=== PATIENT | female | born 1940 | race Caucasian/White ===

== ENCOUNTER 2022-02-18 16:05 | Inpatient (IN) | payer MEDICARE, OTHER ==
[~2022-02-18] VITALS: Ht 154.9 cm; Wt 49.2 kg
[2022-02-18] MEDS ORDERED: CALC GLUC 1 GM/100 ML IVPB 100 ML IV ONE (16:15)
[2022-02-18 16:26] LABS: BASOPHILS # (AUTO) 0.1 10^3/uL (0.0-0.1); BASOPHILS % (AUTO) 1 % (0-10); EOSINOPHILS % (AUTO) 0 % (0-10); HEMATOCRIT 37 % (35-52); HEMOGLOBIN 11.7 g/dL (11.5-16.0); LYMPHOCYTES # (AUTO) 0.7 10^3/uL (1.0-4.0); LYMPHOCYTES % (AUTO) 11 % (12-44); MEAN CORPUSCULAR HEMOGLOBIN 32 pg (25-34); MEAN CORPUSCULAR HGB CONC 32 g/dL (32-36); MEAN CORPUSCULAR VOLUME 100 fL (80-99); MEAN PLATELET VOLUME 10.3 fL (9.0-12.2); MONOCYTES # (AUTO) 0.8 10^3/uL (0.0-1.0); MONOCYTES % (AUTO) 12 % (0-12); NEUTROPHILS # (AUTO) 5.2 10^3/uL (1.8-7.8); NEUTROPHILS % (AUTO) 76 % (42-75); PLATELET COUNT 326 10^3/uL (130-400); WHITE BLOOD COUNT 6.8 10^3/uL (4.3-11.0)
--- NOTE | 2022-02-18 16:27 | ED General ---
General Stated Complaint: ABNORMAL LABS Source of Information: Patient Exam Limitations: No Limitations History of Present Illness Date Seen by Provider: Feb 18, 2022 Time Seen by Provider: 16:02 Initial Comments 81-year-old female presents to the emergency department from [facility] for reported hyperkalemia. [facility] reported to EMS that her heart rate was in the 40s and her blood pressure was 70 systolic. On EMS arrival her heart rate was in the 60s and 70s and her blood pressure was 120/86. She had labs drawn this morning showing a potassium of 6.9. She tells me that she has been at [facility] for 1 week and 2 days, prior to that was admitted to the hospital at [facility]. She is unclear exactly what she was admitted to the hospital for but thinks it may have had something to do with her kidneys. She was told by her doctor that "my kidneys are better now." She denies any fevers or chills. She has had some stabbing pains in her left anterior chest w all for most of the day but states at present they have subsided. She denies any coughing. No abdominal pain. She does tell me that yesterday she had significant amount of loose stools. Nonbloody. Allergies and Home Medications Allergies Coded Allergies: No Known Drug Allergies (Unverified , 02/18/22) Patient Home Medication List Home Medication List Reviewed: Yes ALPRAZolam (ALPRAZolam) 0.25 Mg Tablet, 0.25 MG PO Q8H PRN for ANXIETY, (Reported) Entered as Reported by: AYALA TURNER on 02/19/221352 Last Action: Continued Aspirin (Aspirin) 81 Mg Tab.chew, 81 MG PO DAILY, (Reported) Entered as Reported by: AYALA TURNER on 02/19/221352 Last Action: Continued Carvedilol (Carvedilol) 3.125 Mg Tablet, 3.125 MG PO BID, (Reported) Entered as Reported by: AYALA TURNER on 02/19/221352 Last Action: Continued Citalopram Hydrobromide (Citalopram HBr) 20 Mg Tablet, 20 MG PO DAILY, (Reported) Entered as Reported by: AYALA TURNER on 02/19/221352 Last Action: Continued Famotidine (Famotidine) 20 Mg Tablet, 20 MG PO DAILY, (Reported) Entered as Reported by: AYALA TURNER on 02/19/221352 Last Action: Continued Insulin Aspart (Insulin Aspart Flexpen) 100 Unit/Ml (3 Ml) Insuln.pen, UNITS SQ ACHS, (Reported) Entered as Reported by: AYALA TURNER on 02/19/221352 Last Action: Held Insulin Glargine,Hum.rec.anlog (Lantus Solostar) 100 Unit/Ml (3 Ml) Insuln.pen, 12 UNITS SQ HS, (Reported) Entered as Reported by: AYALA TURNER on 02/19/221352 Last Action: Converted Lansoprazole (Lansoprazole) 30 Mg Capsule.dr, 30 MG PO DAILY, (Reported) Entered as Reported by: AYALA TURNER on 02/19/221352 Last Action: Converted Lisinopril (Lisinopril) 10 Mg Tablet, 10 MG PO DAILY, (Reported) Entered as Reported by: AYALA TURNER on 02/19/221352 Last Action: Held Mirtazapine (Mirtazapine) 15 Mg Tablet, 15 MG PO HS, (Reported) Entered as Reported by: AYALA TURNER on 02/19/221352 Last Action: Converted Oxycodone HCl/Acetaminophen (Oxycodone-Acetaminophen 5-325) 5 Mg-325 Mg Tablet, 1 EACH PO Q4H PRN for PAIN-MODERATE (5-7), (Reported) Entered as Reported by: AYALA TURNER on 02/19/221352 Last Action: Continued Rosuvastatin Calcium (Rosuvastatin Calcium) 20 Mg Tablet, 20 MG PO DAILY, (Reported) Entered as Reported by: AYALA TURNER on 02/19/221352 Last Action: Continued Review of Systems Review of Systems Constitutional: weakness EENTM: no symptoms reported Respiratory: no symptoms reported Cardiovascular: chest pain Gastrointestinal: diarrhea Genitourinary: no symptoms reported Musculoskeletal: no symptoms reported Skin: no symptoms reported Psychiatric/Neurological: No Symptoms Reported Hematologic/Lymphatic: No Symptoms Reported Immunological/Allergic: no symptoms reported Past Cllgfgc-Whlxms-Gytoig Hx Patient Social History Tobacco Use?: No Use of E-Cig and/or Vaping dev: No Substance use?: No Alcohol Use?: No Family Medical History Reviewed Nursing Family Hx No Pertinent Family Hx Physical Exam Vital Signs Vital Signs - First Documented 02/18/22 16:05 Temp 35.7 Pulse 97 Resp 15 B/P (MAP) 126/62 (83) Pulse Ox 95 O2 Delivery Nasal Cannula O2 Flow Rate 2.00 Capillary Refill : Height, Weight, BMI Height: '" Weight: lbs. oz. kg; BMI Method: General Appearance: No Apparent Distress, Thin, Other (She is very pale) HEENT: PERRL/EOMI, TMs Normal, Normal ENT Inspection, Pharynx Normal Neck: Normal Inspection, Non Tender Respiratory: Chest Non Tender, Lungs Clear, Normal Breath Sounds, No Accessory Muscle Use, No Respiratory Distress Cardiovascular: Regular Rate, Rhythm, No Edema, No Gallop, No JVD, Systolic Murmur (Holosystolic murmur left sternal border) Gastrointestinal: Normal Bowel Sounds, No Organomegaly, No Pulsatile Mass, Non Tender, Soft Extremity: Normal Capillary Refill, Normal Inspection, Normal Range of Motion, Non Tender, No Calf Tenderness Neurologic/Psychiatric: Alert, Oriented x3, Normal Mood/Affect Skin: Pallor Lymphatic: No Adenopathy Progress/Results/Core Measures Suspected Sepsis SIRS Temperature: Pulse: Respiratory Rate: Laboratory Tests 02/18/22 16:16: White Blood Count 6.8 Blood Pressure / Mean: Laboratory Tests 02/18/22 16:16: Creatinine 0.89, Platelet Count 326, Total Bilirubin 0.4 Results/Orders Lab Results Laboratory Tests Test 02/18/22 16:16 02/18/22 16:44 Range/Units White Blood Count 6.8 4.3-11.0 10^3/uL Red Blood Count 3.66 L 3.80-5.11 10^6/uL Hemoglobin 11.7 11.5-16.0 g/dL Hematocrit 37 35-52 % Mean Corpuscular Volume 100 H 80-99 fL Mean Corpuscular Hemoglobin 32 25-34 pg Mean Corpuscular Hemoglobin Concent 32 32-36 g/dL Red Cell Distribution Width 13.7 10.0-14.5 % Platelet Count 326 130-400 10^3/uL Mean Platelet Volume 10.3 9.0-12.2 fL Immature Granulocyte % (Auto) 0 % Neutrophils (%) (Auto) 76 H 42-75 % Lymphocytes (%) (Auto) 11 L 12-44 % Monocytes (%) (Auto) 12 0-12 % Eosinophils (%) (Auto) 0 0-10 % Basophils (%) (Auto) 1 0-10 % Neutrophils # (Auto) 5.2 1.8-7.8 10^3/uL Lymphocytes # (Auto) 0.7 L 1.0-4.0 10^3/uL Monocytes # (Auto) 0.8 0.0-1.0 10^3/uL Eosinophils # (Auto) 0.0 0.0-0.3 10^3/uL Basophils # (Auto) 0.1 0.0-0.1 10^3/uL Immature Granulocyte # (Auto) 0.0 0.0-0.1 10^3/uL Sodium Level 139 135-145 MMOL/L Potassium Level 6.3 H 3.6-5.0 MMOL/L Chloride Level 97 L 98-107 MMOL/L Carbon Dioxide Level 31 21-32 MMOL/L Anion Gap 11 5-14 MMOL/L Blood Urea Nitrogen 36 H 7-18 MG/DL Creatinine 0.89 0.60-1.30 MG/DL Estimat Glomerular Filtration Rate 65 BUN/Creatinine Ratio 40 Glucose Level 174 H 70-105 MG/DL Calcium Level 9.2 8.5-10.1 MG/DL Corrected Calcium 10.0 8.5-10.1 MG/DL Magnesium Level 2.1 1.6-2.4 MG/DL Total Bilirubin 0.4 0.1-1.0 MG/DL Aspartate Amino Transf (AST/SGOT) 18 5-34 U/L Alanine Aminotransferase (ALT/SGPT) 15 0-55 U/L Alkaline Phosphatase 36 L 40-136 U/L Total Protein 6.7 6.4-8.2 GM/DL Albumin 3.0 L 3.2-4.5 GM/DL Influenza Type A (RT-PCR) Not Detected Not Detecte Influenza Type B (RT-PCR) Not Detected Not Detecte SARS-CoV-2 RNA (RT-PCR) Not Detected Not Detecte My Orders Orders - DOMINIQUE HOPKINS DO Cbc With Automated Diff (02/18/22 16:12) Comprehensive Metabolic Panel (02/18/22 16:12) Magnesium (02/18/22 16:12) Ua Culture If Indicated (02/18/22 16:12) Chest 1 View Ap/Pa Only (02/18/22 16:12) Covid 19 Inhouse Test (02/18/22 16:12) Influenza A And B By Pcr (02/18/22 16:12) Calc Gluc 1 Gm/100 Ml Ivpb (Calcium Gluc (02/18/22 16:15) Ekg Tracing (02/18/22 16:21) Ed Iv/Invasive Line Start (02/18/22 16:38) C Difficile Ag + Toxin A/B. (02/18/22 16:39) Sodium Bicarbonate 8.4% Syr (Sodium Bica (02/18/22 17:15) Insulin (Regular) Human (Novolin R (Per (02/18/22 21:00) D50w (Emergency) Syringe (Dextrose 50% 5 (02/18/22 17:15) Ns Iv 500 Ml (Sodium Chloride 0.9%) (02/18/22 17:15) Insulin (Regular) Human (Novolin R (Per (02/18/22 17:18) Metronidazole Tablet (Flagyl Tablet) (02/18/22 18:00) Ed Admission (Communication) (02/18/22 17:53) Aspirin Chewable Tablet (Baby Aspirin Ch (02/18/22 18:00) Medications Given in ED Current Medications Medications Dose Ordered Sig/Roman Route Start Time Stop Time Status Last Admin Dose Admin Calcium Gluconate/ Sodium Chloride 100 ml @ 120 mls/hr ONCE ONCE IV 02/18/22 16:15 02/18/22 17:04 DC 02/18/22 16:25 120 MLS/HR Dextrose 50 ml ONCE ONCE IV 02/18/22 17:15 02/18/22 17:16 DC 02/18/22 17:23 50 ML Sodium Bicarbonate 50 meq ONCE ONCE IV 02/18/22 17:15 02/18/22 17:16 DC 02/18/22 17:19 50 MEQ Vital Signs/I&O 02/18/22 16:05 Temp 35.7 Pulse 97 Resp 15 B/P (MAP) 126/62 (83) Pulse Ox 95 O2 Delivery Nasal Cannula O2 Flow Rate 2.00 Capillary Refill : ECG EKG : Comment Atrial fibrillation with a rate of 93 bpm. Normal intervals outside of IN interval. There are T wave inversions in lead III and aVF. No ST changes. No STEMI. Departure Communication (Admissions) Time/Spoke to Admitting Phy: 17:50 Starr Patient has atrial fibrillation, apparently new onset. She does have known severe aortic stenosis and is having right-sided chest pain about an hour into her stay. EKG is nonischemic. Her potassium is 6.3, treated initially with calcium prior to knowing this number then treated with insulin glucose and bica rb thereafter. She does appear dehydrated on exam, ordered 500 cc of normal saline. Blood pressures remained stable. Creatinine is normal and troponin is not elevated. Chest x-ray shows bilateral pleural effusions right greater than left. She does not have any symptoms of pneumonia at this time. Did go ahead and give her aspirin when she started to have chest pain. I do believe she likely has C. difficile as well given her recent antibiotics and the. She has no restrictions. I spoke with Dr. Benitez about the myriad of medical concerns at this time. She accepts the patient and transfer. She requests I write bridging orders which I have completed at this time. Impression Primary Impression: Chest pain Qualified Codes: R07.9 - Chest pain, unspecified Additional Impressions: Hyperkalemia Afib Qualified Codes: I48.91 - Unspecified atrial fibrillation Diarrhea Qualified Codes: R19.7 - Diarrhea, unspecified Disposition: 30 STILL A PATIENT Condition: Stable Admissions Decision to Admit Reason: Admit from ER (General) Decision to Admit/Date: Feb 18, 2022 Time/Decision to Admit Time: 17:50 Transfer Transfer Reason: Exceeds level of care DOMINIQUE HOPKINS DO Feb 18, 2022 16:27
[2022-02-18 16:50] LABS: BILIRUBIN,TOTAL 0.4 MG/DL (0.1-1.0); CALCIUM 9.2 MG/DL (8.5-10.1); CREATININE SERUM 0.89 MG/DL (0.60-1.30); MAGNESIUM 2.1 MG/DL (1.6-2.4); POTASSIUM 6.3 MMOL/L (3.6-5.0)
[2022-02-18 16:51] LABS: TOTAL PROTEIN 6.7 GM/DL (6.4-8.2)
--- NOTE | 2022-02-18 17:12 | Diagnostic Imaging Report ---
INDICATION: Chest pain. FINDINGS: There is a kpxsuevc-jq-[id number] right and small left pleural effusions. The heart is mildly enlarged. There is some vascular congestion and perihilar interstitial and ground-glass densities which may be infectious or edema. Sternal wires are midline. There is no pneumothorax. IMPRESSION: 1. Right greater than left pleural fluid, cardiomegaly, vascular congestion, and likely pulmonary edema. 2. Given parenchymal asymmetry, superimposition of pneumonia particularly in the patient's right middle and lower lobes could not be excluded in the appropriate scenario. Dictated by: Dictated on workstation # [id number]
[2022-02-18] MEDS ORDERED: DEXTROSE 50% 50 ML (IMS) SYR IV ONE (17:15)
[2022-02-18] MEDS ORDERED: SODIUM BICARB 8.4% 50 MEQ/50 ML (ABBOTT) SYR IV ONE (17:15)
[2022-02-18] MEDS ORDERED: inSUlin (REGULAR) HUMAN 1 UNIT/0.01 ML (CHARGE PER UNIT) ONE (17:18)
[2022-02-18] MEDS: inSUlin (REGULAR) HUMAN 1 UNIT/0.01 ML (CHARGE PER UNIT) IV SCH (17:20)
[2022-02-18] MEDS: NS IV 500 ML 500 ML IV SCH (17:20)
[2022-02-18] MEDS ORDERED: ASPIRIN 81 MG CHEW (CHILDREN'S ASA) PO ONE (18:00)
[2022-02-18] MEDS ORDERED: metroNIDAZOLE 500 MG (FLAGYL) TAB PO ONE (18:00)
[2022-02-18 19:30] VITALS: BP 109/69
[2022-02-18 22:23] LABS: CALCIUM 9.3 MG/DL (8.5-10.1)
[2022-02-18 22:27] LABS: CREATININE SERUM 0.99 MG/DL (0.60-1.30)
[2022-02-19] VITALS: BP 97/61
[2022-02-19 04:00] VITALS: BP 92/47
[2022-02-19 05:14] LABS: BASOPHILS # (AUTO) 0.1 10^3/uL (0.0-0.1); BASOPHILS % (AUTO) 1 % (0-10); EOSINOPHILS % (AUTO) 0 % (0-10); HEMATOCRIT 33 % (35-52); HEMOGLOBIN 10.5 g/dL (11.5-16.0); LYMPHOCYTES # (AUTO) 1.1 10^3/uL (1.0-4.0); LYMPHOCYTES % (AUTO) 19 % (12-44); MEAN CORPUSCULAR HEMOGLOBIN 32 pg (25-34); MEAN CORPUSCULAR HGB CONC 32 g/dL (32-36); MEAN CORPUSCULAR VOLUME 100 fL (80-99); MEAN PLATELET VOLUME 10.2 fL (9.0-12.2); MONOCYTES # (AUTO) 0.9 10^3/uL (0.0-1.0); MONOCYTES % (AUTO) 15 % (0-12); NEUTROPHILS # (AUTO) 3.7 10^3/uL (1.8-7.8); NEUTROPHILS % (AUTO) 64 % (42-75); PLATELET COUNT 290 10^3/uL (130-400); WHITE BLOOD COUNT 5.8 10^3/uL (4.3-11.0)
[2022-02-19 05:31] LABS: POTASSIUM 6.2 MMOL/L (3.6-5.0)
[2022-02-19 05:32] LABS: CALCIUM 9.1 MG/DL (8.5-10.1)
[2022-02-19 05:36] LABS: CREATININE SERUM 1.11 MG/DL (0.60-1.30)
[2022-02-19] MEDS: inSUlin (REGULAR) HUMAN 1 UNIT/0.01 ML (CHARGE PER UNIT) IV SCH ×4 (07:00→21:46)
[2022-02-19 08:00] VITALS: BP 98/51
[2022-02-19] MEDS ORDERED: SODIUM POLYSTYRENE POWDER 15 GM BOTTLE PO NR (08:00)
--- NOTE | 2022-02-19 08:03 | History & Physical-Hospitalist ---
History of Present Illness HPI/Chief Complaint Chief complaint: Debility with hyperkalemia History of present illness. This is an 81-year-old female clinic patient of [facility] who was placed in [facility] following a hospital course in [place] who presented to the ER with hyperkalemia. Patient had no other abnormalities. Patient will be given IV fluid and Kayexalate. Decubitus ulcer will be managed by Dr. Mccann. She refuses to go back to [facility]. She will go live with her son. Source: patient Exam Limitations: no limitations Date Seen 02/19/22 Time Seen by a Provider: 11:00 Attending Physician Estrada Cao MD PCP Admitting Physician: Maria Luz Clements MD Attending Physician: Maria Luz Clements MD Referring Physician Date of Admission Feb 18, 2022 at 19:45 Home Medications & Allergies Home Medications Reviewed patient Home Medication Reconciliation performed by pharmacy medication reconciliations visitor services technician and/or nursing. Patients Allergies have been reviewed. Allergies Allergies Coded Allergies No Known Drug Allergies (Ftervrmxvv66/30/22) Past Cnkchtd-Opviwh-Nunfkq Hx Patient Social History Marrital Status: single Employed/Student: retired Tobacco Use?: No Smoking Status: Never a Smoker Smokeless Tobacco Frequency: Never a User Use of E-Cig and/or Vaping dev: No Use of E-Cig and/or Vaping Srinath: Never a User Substance use?: No Alcohol Use?: No Pt feels they are or have been: No Current Status status: No status: No Advance Directives: No Communicates: Verbally Primary Language: Dominican Preferred Spoken Language: Dominican Is interpretation needed?: No Sensory deficits: Vision impairment, Hearing impairment Implanted or Applied Medical D: None Past Medical History High Cholesterol, Hypertension Family Medical History Reviewed Nursing Family Hx No Pertinent Family Hx Review of Systems Constitutional: see HPI, malaise, weakness EENTM: no symptoms reported Respiratory: no symptoms reported Cardiovascular: no symptoms reported Gastrointestinal: diarrhea Genitourinary: no symptoms reported Musculoskeletal: back pain, joint pain Skin: no symptoms reported Psychiatric/Neurological: No Symptoms Reported Physical Exam Physical Exam Vital Signs Vital Signs - First Documented 02/18/22 16:05 Temp 35.7 Pulse 97 Resp 15 B/P (MAP) 126/62 (83) Pulse Ox 95 O2 Delivery Nasal Cannula O2 Flow Rate 2.00 Capillary Refill : Less Than 3 Seconds Height, Weight, BMI Height: '" Weight: lbs. oz. kg; 20.42 BMI Method: General Appearance: Anxious, Chronically ill, Thin Respiratory: Chest Non Tender, Lungs Clear, Normal Breath Sounds, No Accessory Muscle Use, No Respiratory Distress Cardiovascular: Regular Rate, Rhythm, No Edema, No Gallop, No JVD, No Murmur, Normal Peripheral Pulses Neurologic/Psychiatric: Alert, Oriented x3, No Motor/Sensory Deficits, Normal Mood/Affect Results Results/Procedures Labs Laboratory Tests 02/18/22 16:16 02/18/22 22:05 02/19/22 05:06 Patient resulted labs reviewed. Assessment/Plan Admission Diagnosis Assessment: Hyperkalemia Debility Sacral decubitus ulcer Diarrhea C. difficile positive Plan: Kayexalate Gentle IV fluids Vancomycin p.o. Admission Status: Inpatient Order (span 2 midnights) Reason for Inpatient Admission: Decubitus ulcer with C. difficile colitis BJORN FLANAGAN DO Feb 19, 2022 08:03
[2022-02-19] MEDS: NS IV 500 ML 500 ML IV SCH (09:55)
--- NOTE | 2022-02-19 11:47 | Wound Care Assessment ---
Wound Care Assessment Date Seen by Provider: Feb 19, 2022 Time Seen by Provider: 11:40 Chief Complaint Sacral Pressure ulcer HPI This pleasant 81 year old female comes [facility] us [facility] with diarrheal illness and sacral pressure ulcer. She notes that the ulcer has been present for a long while and is painful. Her facility has been treating it with "patches". She is quite frail and there is a workup for C.Diff in process. Her albumin is a bit low (will check prealbumin). I will go ahead and order protein shakes with her history and body habitus. She is incontinent of feces currently as well. Smoking Status: Never a Smoker Recreational Drug Use: No Alcohol Use: Denies Use Review of Systems General: Appetite (Poor), Other (Thin) Cardiovascular: Palpitations Gastrointestinal: Diarrhea Neurological: Weakness Exam Vital Signs Date Time Temp Pulse Resp B/P (MAP) Pulse Ox O2 Delivery O2 Flow Rate FiO2 02/19/22 09:46 95 Nasal Cannula 2.00 02/19/22 08:00 36.2 92 18 98/51 (67) Capillary Refill : Less Than 3 Seconds General Appearance: cachetic HEENT: other (normal hearing) Neck: full range of motion Cardiovascular: no edema Respiratory: no respiratory distress, no accessory muscle use Extremities: no pedal edema Neurologic/Psychiatric: alert, normal mood/affect, other (Patient is reasonable historian but is confused on timeframe (longevity of group home stay, timing of ulceration...)) Skin: normal color Skin Problem Location: other (sacrum) Skin Character: erythema (non-blanching erythema in periwound), tenderness Wound assessment: 2x1.5x0.1cm. The epithelialization is none. There is no tunneling or undermining. Drainage is large and serous. Granulation is none. Necrotic is large and slough. The margins are flat. Results Laboratory Tests 02/18/22 16:16: White Blood Count 6.8, Red Blood Count 3.66L, Hemoglobin 11.7, Hematocrit 37, Mean Corpuscular Volume 100H, Mean Corpuscular Hemoglobin 32, Mean Corpuscular Hemoglobin Concent 32, Red Cell Distribution Width 13.7, Platelet Count 326, Mean Platelet Volume 10.3, Immature Granulocyte % (Auto) 0, Neutrophils (%) (Auto) 76H, Lymphocytes (%) (Auto) 11L, Monocytes (%) (Auto) 12, Eosinophils (%) (Auto) 0, Basophils (%) (Auto) 1, Neutrophils # (Auto) 5.2, Lymphocytes # (Auto) 0.7L, Monocytes # (Auto) 0.8, Eosinophils # (Auto) 0.0, Basophils # (Auto) 0.1, Immature Granulocyte # (Auto) 0.0, Sodium Level 139, Potassium Level 6.3H, Chloride Level 97L, Carbon Dioxide Level 31, Anion Gap 11, Blood Urea Nitrogen 36H, Creatinine 0.89, Estimat Glomerular Filtration Rate 65, BUN/Creatinine Ratio 40, Glucose Level 174H, Calcium Level 9.2, Corrected Calcium 10.0, Magnesium Level 2.1, Total Bilirubin 0.4, Aspartate Amino Transf (AST/SGOT) 18, Alanine Aminotransferase (ALT/SGPT) 15, Alkaline Phosphatase 36L, Total Protein 6.7, Albumin 3.0L 02/18/22 16:44: Influenza Type A (RT-PCR) Not Detected, Influenza Type B (RT-PCR) Not Detected, SARS-CoV-2 RNA (RT-PCR) Not Detected 02/18/22 22:05: Sodium Level 136, Potassium Level 6.0H, Chloride Level 98, Carbon Dioxide Level 24, Anion Gap 14, Blood Urea Nitrogen 35H, Creatinine 0.99, Estimat Glomerular Filtration Rate 57, BUN/Creatinine Ratio 35, Glucose Level 206H, Calcium Level 9.3 02/19/22 05:06: White Blood Count 5.8, Red Blood Count 3.31L, Hemoglobin 10.5L, Hematocrit 33L, Mean Corpuscular Volume 100H, Mean Corpuscular Hemoglobin 32, Mean Corpuscular Hemoglobin Concent 32, Red Cell Distribution Width 13.6, Platelet Count 290, Mean Platelet Volume 10.2, Immature Granulocyte % (Auto) 0, Neutrophils (%) (Auto) 64, Lymphocytes (%) (Auto) 19, Monocytes (%) (Auto) 15H, Eosinophils (%) (Auto) 0, Basophils (%) (Auto) 1, Neutrophils # (Auto) 3.7, Lymphocytes # (Auto) 1.1, Monocytes # (Auto) 0.9, Eosinophils # (Auto) 0.0, Basophils # (Auto) 0.1, Immature Granulocyte # (Auto) 0.0, Sodium Level 136, Potassium Level 6.2H, Chloride Level 98, Carbon Dioxide Level 26, Anion Gap 12, Blood Urea Nitrogen 38H, Creatinine 1.11, Estimat Glomerular Filtration Rate 50, BUN/Creatinine Ratio 34, Glucose Level 209H, Calcium Level 9.1 Assessment/Plan/Dx Assessment: 1. S3 pressure ulcer sacrum 2. Diarrheal illness with fecal incontinence 3. Atrial fibrillation (new) 4. Severe aortic stenosis 5. PEM with cachexia 6. CKD stage 3 Plan: 1. Cleanse daily with vashe. Protect periwound with barrier ointment. Apply Aquacel Ag to wound bed. Secure with BFD and change daily and prn for soiling. Frequent positional changes for adequate off loading 2. Defer to primary team. Good hygiene recommended 3. Defer to primary team 4. Defer to primary team 6. Protein shakes tid 7. Defer to primary team JANEL SNOW MD Feb 19, 2022 11:47
--- NOTE | 2022-02-19 11:59 | Physical Therapy Evaluation ---
PT Evaluation-General Medical Diagnosis Admission Date Feb 18, 2022 at 19:45 Medical Diagnosis: A-fib/CP/diarrhea/hypokalemia Onset Date: Feb 18, 2022 Therapy Diagnosis Therapy Diagnosis: generalized weakness/debility Precautions Precautions/Isolations: Fall Prevention, Contact/Enteric Isolation Referral Physician: Alex Reason for Referral: Evaluation/Treatment Medical History Pertinent Medical History: Atrial Fib Additional Medical History multiple wounds on her gluteal region Current History EMS from [place] secondary to decreased HR Reviewed History: Yes Social History Home: Prison Prior Prior Level of Function SCALE: Activities may be completed with or without assistive devices. 6-Rtjscritmh-cfozlgv completes the activity by him/herself with no assistance from a helper. 5-Set-up or Clean-up Assistance-helper sets up or cleans up; patient completes activity. [place] assists only prior to or following the activity. 4-Supervision or Touching Assistance-helper provides verbal cues and/or touchi ng/steadying and/or contact guard assistance as patient completes activity. Assistance may be provided throughout the activity or intermittently. 3-Partial/Moderate Assistance-helper does LESS THAN HALF the effort. [place] lifts, holds or supports trunk or limbs, but provides less than half the effort. 2-Substantial/Maximal Assistance-helper does MORE THAN HALF the effort. [place] lifts or holds trunk or limbs and provides more than half the effort. 6-Vhhxvhvfd-olbwkg does ALL the effort. Patient does none of the effort to complete the activity. Or, the assistance of 2 or more helpers is required for the patient to complete the activity. If activity was not attempted, code reason: 7-Patient Refused. 9-Not Applicable-not attempted and the patient did not perform the activity before the current illness, exacerbation or injury. 10-Not Attempted due to Environmental Limitations-(lack of equipment, weather restraints, etc.). 88-Not Attempted due to Medical Conditions or Safety Concerns. Bed Mobility: 4 Transfers (B,C,W/C): 4 Gait: 4 Indoor Mobility (Ambulation): Needed Some Help Stairs: Not Applicalbe Prior Devices Use: Walker PT Evaluation-Current Subjective Patient agrees to PT. Wound care present for assessment. Objective Patient Orientation: Person, Time, Situation Attachments: Oxygen ROM/Strength ROM Lower Extremities bilateral LE WFL Strength Lower Extremities 3/5 grossly bilateral LE all planes Integumentary/Posture Integumentary refer to wound care assessment Bowel Incontinence: Yes Bladder Incontinence: Yes Posture severely kyphotic Neuromuscular (Tone, Coordination, Reflexes) grossly intact Sensory Vision: Functional Hearing: Functional Transfers Sit to Lying (QC): 3 Lying to Sitting/Side of Bed(Q: 3 Sit to Stand (QC): 3 Gait Mode of Locomotion: Walk Anticipated Mode of Locomotion: Walk Walk 10 feet (QC): 3 (side stepping) Distance: 10' Gait Assistive Device: FWW Comments/Gait Description minimal foot clearance due to weakness Balance Sitting Static: Fair Sitting Dynamic: Fair Standing Static: Fair Standing Dynamic: Poor Assessment/Needs 81 y.o. female, will benefit from skilled PT to address functional strength and mobility to improve current LOF. Patient remained in bed per her request, side lying right to relieve gluteal pressure. Rehab Potential: Guarded PT Care Home Goals Care Home Goals PT Care Home Goals Time Frame: Feb 28, 2022 Roll Left & Right (QC): 4 Sit to Lying (QC): 4 Lying-Sitting on Side/Bed(QC): 4 Sit to Stand (QC): 4 Chair/Wwz-fm-Kgxzd Xfer(QC): 4 Toilet Transfer (QC): 4 Walk 10 feet (QC): 4 Walk 50ft with 2 Turns (QC): 4 PT Plan Problem List Problem List: Activity Tolerance, Functional Strength, Safety, Balance, Gait, Transfer, Bed Mobility Treatment/Plan Treatment Plan: Continue Plan of Care Treatment Plan: Bed Mobility, Education, Functional Activity Mary [place], Functional Strength, Gait, Safety, Therapeutic Exercise, Transfers Treatment Duration: Feb 28, 2022 Frequency: 6 times per week Estimated Hrs Per Day: .25 hour per day Patient and/or Family Agrees t: Yes Time Time In: 1120 Time Out: 1134 DATE: Feb 19, 2022 Total Billed Treatment Time: 14 [facility] MAYUR VELASQUEZ PT Feb 19, 2022 11:59
[2022-02-19 12:00] VITALS: BP 113/54
[2022-02-19] MEDS ORDERED: HYPOCHLOROUS ACID/NaCl (VASHE) 250 ML IR SCH (12:00)
--- NOTE | 2022-02-19 13:38 | Occ Therapy Progress Note ---
Therapy Progress Note OT orders received and chart reviewed. OT attempted evaluation this afternoon, but pt adamantly declined OT services on this date due to extreme pain in her coccyx wound. During visit, pt rated pain 10/10, requiring to have basin close by due to c/o nausea. OT educated pt on purpose/benefit of OT, but she continued to decline services, requesting therapist to return tomorrow. OT will attempt evaluation again tomorrow per pt request. 1, refusal 1330 TALITA MERA OT Feb 19, 2022 13:38
[2022-02-19] MEDS ORDERED: MIRT-68 PO (13:53)
[2022-02-19] MEDS ORDERED: INSU100I55 SQ (13:53)
[2022-02-19] MEDS ORDERED: LISI10TA25 PO (13:53)
[2022-02-19] MEDS ORDERED: LANS30CA PO (13:53)
[2022-02-19] MEDS ORDERED: CARV3.122 PO (13:53)
[2022-02-19] MEDS ORDERED: ALPR0.254 PO (13:53)
[2022-02-19] MEDS ORDERED: ROSU20TA32 PO (13:53)
[2022-02-19] MEDS ORDERED: ASPI-999 PO (13:53)
[2022-02-19] MEDS ORDERED: INSU100I10 SQ (13:53)
[2022-02-19] MEDS ORDERED: FAMO20TA5 PO (13:53)
[2022-02-19] MEDS ORDERED: OXYC1TAB11 PO (13:53)
[2022-02-19] MEDS ORDERED: CITA20TA9 PO (13:53)
[2022-02-19 16:00] VITALS: BP 94/64
[2022-02-19] MEDS: VANCOMYCIN 125 MG CAPSULE PO SCH ×2 (17:57→21:47)
[2022-02-19 19:56] VITALS: BP 98/52
[2022-02-19] MEDS: NS IV 1000 ML 1,000 ML IV SCH (23:04)
[2022-02-20] VITALS (8 sets, daily range): BP systolic 95–126; BP diastolic 53–98
[2022-02-20] MEDS: oxyCODONE/APAP 5/325MG (PERCOCET 5) TABLET PO PRN ×2 (04:17→16:19)
[2022-02-20] MEDS: inSUlin (REGULAR) HUMAN 1 UNIT/0.01 ML (CHARGE PER UNIT) IV SCH ×4 (06:25→20:42)
[2022-02-20] MEDS: PANTOPRAZOLE 40 MG (PROTONIX) TAB PO SCH (06:25)
[2022-02-20 06:29] LABS: POTASSIUM 5.9 MMOL/L (3.6-5.0)
[2022-02-20 06:30] LABS: CALCIUM 8.8 MG/DL (8.5-10.1)
[2022-02-20 06:34] LABS: CREATININE SERUM 1.29 MG/DL (0.60-1.30)
[2022-02-20] MEDS: ROSUVASTATIN 20 MG (CRESTOR) TABLET PO SCH (08:15)
[2022-02-20] MEDS: VANCOMYCIN 125 MG CAPSULE PO SCH ×4 (08:15→20:40)
[2022-02-20] MEDS: ASPIRIN 81 MG CHEW (CHILDREN'S ASA) PO SCH (08:16)
[2022-02-20] MEDS: FAMOTIDINE 20 MG (PEPCID) TABLET PO SCH (08:16)
--- NOTE | 2022-02-20 09:39 | Occupational Therapy Eval ---
OT Evaluation-General/PLF Medical Diagnosis Admission Date Feb 18, 2022 at 19:45 Medical Diagnosis: A-fib/CP/diarrhea/hypokalemia Onset Date: Feb 18, 2022 Therapy Diagnosis Therapy Diagnosis: reduced adl status, cognition, safety, pain Precautions Precautions/Isolations: Fall Prevention, Contact/Enteric Isolation (C-diff) Referral Physician: Alex Lowry Reason: Evaluation/Treatment Medical History Pertinent Medical History: Atrial Fib Current History Pt presented from alf with c/o decreased HR. Found to be in A-fib. Pt is a very poor historian, no family present to verify responses. Pt only able to recall that she lives in a fdc. She is unable to answer any other PLOF questions as she responds only with "I don't remember." Reviewed History: Yes Social History Home: Custodial ADL-Prior Level of Function SCALE: Activities may be completed with or without assistive devices. 6-Nagthgvizp-dexoyri completes the activity by him/herself with no assistance from a helper. 5-Set-up or Clean-up Assistance-helper sets up or cleans up; patient completes activity. [place] assists only prior to or following the activity. 4-Supervision or Touching Assistance-helper provides verbal cues and/or touching/steadying and/or contact guard assistance as patient completes activity. Assistance may be provided throughout the activity or intermittently. 3-Partial/Moderate Assistance-helper does LESS THAN HALF the effort. [place] lifts, holds or supports trunk or limbs, but provides less than half the effort. 2-Substantial/Maximal Assistance-helper does MORE THAN HALF the effort. [place] lifts or holds trunk or limbs and provides more than half the effort. 2-Arojeteig-ccdrur does ALL the effort. Patient does none of the effort to complete the activity. Or, the assistance of 2 or more helpers is required for the patient to complete the activity. If activity was not attempted, code reason: 7-Patient Refused. 9-Not Applicable-not attempted and the patient did not perform the activity before the current illness, exacerbation or injury. 10-Not Attempted due to Environmental Limitations-(lack of equipment, weather restraints, etc.). 88-Not Attempted due to Medical Conditions or Safety Concerns. Self Care: Unknown Functional Cognition: Unknown OT Current Status Subjective Pt very confused, requires significant time to process all questions. Appearance Pt left sitting upright in bed, all needs within reach, RN notified. Mental Status/Objective Patient Orientation: Person, Confused, Place Attachments: [place] Catheter, IV, Oxygen, SCD's, Telemetry ADL-Treatment Eating (QC): 3 Pt listing R in bed at OT arrival. She immediately verbalizes "I'm not ready, I'm not ready, when will they be here?" When asked further detail, pt asking wh en dinner would be arriving. Her breakfast tray was set in front of her untouched. Cues needed to direct attention/head back to midline in order to identify tray table. Mod a to return trunk to midline. Dependent to cut foot, place onto fork and place fork into hand. Once patient was holding silverware, she was able to bring food to mouth without assist. Pt is easily distracted and requires several cues to continue meal. She perseverats on pain in buttocks and often screams out in pain. Pt unable to tolerate/attend to further activity due to pain. RN notified. Education OT Patient Education: Correct positioning, Modified ADL techniques, Purpose of tx/functional activities Teaching Recipient: Patient Teaching Methods: Discussion Response to Teaching: Reinforcement Needed OT Snf Goals Snf Goals Time Frame: Mar 13, 2022 Eating (QC): 4 Oral Hygiene (QC): 4 Toileting Hygiene (QC): 3 Shower/Bathe Self (QC): 2 Upper Body Dressing (QC): 3 Lower Body Dressing (QC): 3 Additional Goals: 1-Demonstrate ADL Tasks, 2-Verbalize Understanding, 3- ImproveStrength/[place] 1=Demonstrate adherence to instructed precautions during ADL tasks. 2=Patient will verbalize/demonstrate understanding of assistive devices/modifications for ADL. 3=Patient will improve strength/tolerance for activity to enable patient to perform ADL's. Unsure of patient true baseline at this time, goals may be modified with further investigation. OT Education/Plan Problem List/Assessment Assessment: Decreased Activ Tolerance, Decreased Safety Aware, Decreased UE Strength, Dependent Transfers, Impaired Bed Mobility, Impaired Cognition, Impaired Coordination, Impaired Funct Balance, Impaired Self-Care Skills, Restricted Funct UE ROM, Visual-Perceptual Deficit Discharge Recommendations Plan/Recommendations: Continue POC Therapy Discharge Recommendati: Post Acute OT Treatment Plan/Plan of Care Treatment,Training & Education: Yes Patient would benefit from OT for education, treatment and training to promote independence in ADL's, mobility, safety and/or upper extremity function for ADL's. Plan of Care: ADL Retraining, Caregiver Training, Cognitive Retraining, Functional Mobility, Group Exercise/Act as Ind, UE Funct Exercise/Act, Visual/P erceptual Retrain, W/C Management Training Treatment Duration: Mar 13, 2022 Frequency: 3 times per week (3-5x/week ) Estimated Hrs Per Day: .25 hour per day Rehab Potential: Poor Time Start Time: 09:16 Stop Time: 09:28 DATE: Feb 20, 2022 Total Time Billed (hr/min): 12 Billed Treatment Time 1 visit Ellen Bliss OT Feb 20, 2022 09:39
--- NOTE | 2022-02-20 10:58 | Physical Therapy Progress Note ---
Therapy Progress Note Informed patient we were physical therapists there to do some exercises and try to get her up and moving. Patient refused and said she didn't want to get up. Encouraged patient to try to sit at EOB or at least do some exercises while in bed, patient refused, closed her eyes and ignored us. Will try again later this afternoon if able. ADDIS JAMES PT Feb 20, 2022 10:58
--- NOTE | 2022-02-20 11:20 | Progress Note - Hospitalist ---
Subjective HPI/CC On Admission Date Seen by Provider: Feb 20, 2022 Time Seen by Provider: 11:00 Chief complaint: Debility with hyperkalemia History of present illness. This is an 81-year-old female clinic patient of [facility] who was placed in [facility] following a hospital course in [place] who presented to the ER with hyperkalemia. Patient had no other abnormalities. Patient will be given IV fluid and Kayexalate. Decubitus ulcer will be managed by Dr. Mccann. She refuses to go back to assisted. She will go live with her son. Subjective/Events-last exam Pt is doing about the same Potassium is 5.9 C. Diff maintained on Vancomycin Diaarhea is less Pt has very clear dementia She will not be an in-patient rehab candidate Moving to 4th floor Review of Systems Gastrointestinal: Diarrhea Neurological: Confusion Objective Exam Vital Signs Vital Signs Date Time Temp Pulse Resp B/P (MAP) Pulse Ox O2 Delivery O2 Flow Rate FiO2 02/21/22 04:15 37.5 86 18 108/51 (70) 100 Nasal Cannula 2.00 Capillary Refill : Less Than 3 Seconds General Appearance: No Apparent Distress, WD/WN, Chronically ill, Thin Respiratory: Lungs Clear, Normal Breath Sounds Cardiovascular: Regular Rate, Rhythm Neurologic/Psychiatric: Alert, Oriented x3, No Motor/Sensory Deficits, Normal Mood/Affect Results/Procedures Lab Patient resulted labs reviewed. Assessment/Plan Assessment and Plan Assess & Plan/Chief Complaint Assessment: Hyperkalemia Debility Sacral decubitus ulcer Diarrhea C. difficile positive Dementia Plan: Kayexalate Gentle IV fluids Vancomycin p.o. BJORN FLANAGAN DO Feb 20, 2022 11:20
[2022-02-20] MEDS ORDERED: SODIUM POLYSTYRENE POWDER 15 GM BOTTLE PO ONE (11:30)
[2022-02-20] MEDS: ALPRAZolam 0.25 MG (XANAX) TAB PO PRN (13:31)
[2022-02-20] MEDS: NS IV 1000 ML 1,000 ML IV SCH ×2 (14:51→19:20)
--- NOTE | 2022-02-20 15:10 | Physical Therapy Progress Note ---
Therapy Progress Note Patient on hold this afternoon per nurse . Will check back tomorrow. ADDIS JAMES PT Feb 20, 2022 15:10
[2022-02-20] MEDS ORDERED: MIRTAZAPINE 15 MG (REMERON) TAB PO SCH (21:00)
[2022-02-21] MEDS: ALPRAZolam 0.25 MG (XANAX) TAB PO PRN (01:13)
[2022-02-21] MEDS: oxyCODONE/APAP 5/325MG (PERCOCET 5) TABLET PO PRN (04:13)
[2022-02-21 04:15] VITALS: BP 108/51
[2022-02-21] MEDS ORDERED: DEXTROSE 50% 50 ML (IMS) SYR IV STA (06:23)
[2022-02-21] MEDS ORDERED: DEXTROSE 50% 50 ML (IMS) SYR ONE (06:24)
[2022-02-21] MEDS: PANTOPRAZOLE 40 MG (PROTONIX) TAB PO SCH (06:30)
--- NOTE | 2022-02-21 06:41 | Progress Note - Hospitalist ---
Subjective HPI/CC On Admission Date Seen by Provider: Feb 21, 2022 Time Seen by Provider: 11:00 Chief complaint: Debility with hyperkalemia History of present illness. This is an 81-year-old female clinic patient of [facility] who was placed in [facility] following a hospital course in [place] who presented to the ER with hyperkalemia. Patient had no other abnormalities. Patient will be given IV fluid and Kayexalate. Decubitus ulcer will be managed by Dr. Mccann. She refuses to go back to correction. She will go live with her son. Subjective/Events-last exam Patient declining rapidly Had significant hypoglycemia today indicative of end-of-life changes Spoke with family and they want comfort care this afternoon Review of Systems General: Fatigue, Malaise Objective Exam Vital Signs Vital Signs Date Time Temp Pulse Resp B/P (MAP) Pulse Ox O2 Delivery O2 Flow Rate FiO2 02/21/22 22:19 Nasal Cannula 4.50 02/21/22 20:09 88 02/21/22 15:48 36.4 65 16 109/67 (81) Capillary Refill : Less Than 3 Seconds General Appearance: Chronically ill, Thin, Other (Semicomatose) Respiratory: Lungs Clear, Normal Breath Sounds Cardiovascular: Regular Rate, Rhythm Results/Procedures Lab Laboratory Tests 02/21/22 06:15 Patient resulted labs reviewed. Assessment/Plan Assessment and Plan Assess & Plan/Chief Complaint Assessment: End-of-life status Severe hypoglycemia indicative of end-of-life status Hyperkalemia Debility Sacral decubitus ulcer Diarrhea C. difficile positive Dementia Plan: Comfort care BJORN FLANAGAN DO Feb 21, 2022 06:41
[2022-02-21] MEDS: inSUlin (REGULAR) HUMAN 1 UNIT/0.01 ML (CHARGE PER UNIT) IV SCH (06:42)
[2022-02-21] MEDS ORDERED: D5 NS 1000 ML IV SOLUTION 1,000 ML IV SCH (06:45)
[2022-02-21] MEDS ORDERED: D5 NS 1000 ML IV SOLUTION 1,000 ML IV ONE (06:48)
[2022-02-21 07:01] LABS: BASOPHILS % (AUTO) 0 % (0-10); EOSINOPHILS % (AUTO) 0 % (0-10); HEMATOCRIT 38 % (35-52); HEMOGLOBIN 11.8 g/dL (11.5-16.0); LYMPHOCYTES # (AUTO) 1.1 10^3/uL (1.0-4.0); LYMPHOCYTES % (AUTO) 15 % (12-44); MEAN CORPUSCULAR HEMOGLOBIN 32 pg (25-34); MEAN CORPUSCULAR HGB CONC 31 g/dL (32-36); MEAN CORPUSCULAR VOLUME 104 fL (80-99); MEAN PLATELET VOLUME 10.2 fL (9.0-12.2); MONOCYTES # (AUTO) 0.8 10^3/uL (0.0-1.0); MONOCYTES % (AUTO) 11 % (0-12); NEUTROPHILS # (AUTO) 5.4 10^3/uL (1.8-7.8); NEUTROPHILS % (AUTO) 74 % (42-75); PLATELET COUNT 356 10^3/uL (130-400); WHITE BLOOD COUNT 7.3 10^3/uL (4.3-11.0)
[2022-02-21 07:26] LABS: ALBUMIN 3.1 GM/DL (3.2-4.5); BILIRUBIN,TOTAL 0.2 MG/DL (0.1-1.0); CALCIUM 9.1 MG/DL (8.5-10.1); CREATININE SERUM 1.41 MG/DL (0.60-1.30); POTASSIUM 5.5 MMOL/L (3.6-5.0); TOTAL PROTEIN 6.4 GM/DL (6.4-8.2)
[2022-02-21 07:48] VITALS: BP 123/72
[2022-02-21] MEDS: ASPIRIN 81 MG CHEW (CHILDREN'S ASA) PO SCH (09:15)
[2022-02-21] MEDS: VANCOMYCIN 125 MG CAPSULE PO SCH (09:16)
[2022-02-21] MEDS: FAMOTIDINE 20 MG (PEPCID) TABLET PO SCH (09:16)
[2022-02-21] MEDS: ROSUVASTATIN 20 MG (CRESTOR) TABLET PO SCH (09:16)
[2022-02-21 09:26] VITALS: BP 146/71
[2022-02-21] MEDS ORDERED: inSUlin ASPART (NovoLOG) 1 UNIT/0.01 ML (CHARGE PER UNIT) SC SCH (11:00)
[2022-02-21 11:40] VITALS: BP 113/66
--- NOTE | 2022-02-21 12:27 | Physical Therapy Progress Note ---
Therapy Progress Note Pt being positioned in bed upon my arrival to room. Nurse requested no PT this date as patient is declining and possibly moving toward comfort care. Will follow up 02/23/22 regarding continued PT services. CHICO HESS PT Feb 21, 2022 12:27
[2022-02-21] MEDS ORDERED: HYDROmorphone 2 MG/ML VIAL (DILAUDID) IVP PRN (12:30)
[2022-02-21 15:48] VITALS: BP 109/67
[2022-02-21] MEDS ORDERED: SALIVA SUBSTITUTE 60 ML SPRAY(MOUTHKOTE) MM PRN (16:45)
[2022-02-21] MEDS ORDERED: LORazepam 1 MG (ATIVAN) TAB SL PRN (16:45)
[2022-02-21] MEDS ORDERED: ATROPINE 1% OPHTHALMIC SOLN 2 ML SL PRN (16:45)
[2022-02-21] MEDS ORDERED: ARTIFICAL TEARS 0.4 ML UNIT DOSE (REFRESH PLUS) OU PRN (16:45)
[2022-02-21] MEDS ORDERED: BISACODYL 10 MG SUPP (DULCOLAX) PR PRN (16:45)
[2022-02-21] MEDS ORDERED: RT-ALBUTEROL/IPRATROPIUM 3 ML (DUONEB) VIAL INH PRN (16:45)
[2022-02-21] MEDS ORDERED: GLYCOPYRROLATE 0.2 MG/ML (ROBINUL) 2 ML VIAL IV PRN (16:45)
[2022-02-21] MEDS ORDERED: LORazepam INJ 2 MG/ML (ATIVAN) VIAL IVP PRN (16:45)
[2022-02-21] MEDS ORDERED: ACETAMINOPHEN 650 MG SUPP (TYLENOL) PR PRN (16:45)
[2022-02-21] MEDS ORDERED: ONDANSETRON 4 MG/2 ML (SDV) Z0FRAN IVP PRN (16:45)
[2022-02-21] MEDS ORDERED: PROMETHAZINE INJ 25 MG/ML (PHENERGAN) AMP IVP PRN (16:45)
[2022-02-21] MEDS ORDERED: SCOPOLAMINE 1.5 MG (TRANSDERM-SCOP) PATCH TOP SCH (17:00)
[2022-02-21] MEDS: HYDROmorphone 2 MG/ML VIAL (DILAUDID) IVP PRN (18:18)
[2022-02-22] MEDS: HYDROmorphone 2 MG/ML VIAL (DILAUDID) IVP PRN ×3 (00:20→10:20)
--- NOTE | 2022-02-22 06:08 | Progress Note - Hospitalist ---
Subjective HPI/CC On Admission Date Seen by Provider: Feb 22, 2022 Time Seen by Provider: 12:00 Chief complaint: Debility with hyperkalemia History of present illness. This is an 81-year-old female clinic patient of [facility] who was placed in [facility] following a hospital course in [place] who presented to the ER with hyperkalemia. Patient had no other abnormalities. Patient will be given IV fluid and Kayexalate. Decubitus ulcer will be managed by Dr. Mccann. She refuses to go back to longterm. She will go live with her son. Objective Exam Vital Signs Vital Signs Date Time Temp Pulse Resp B/P (MAP) Pulse Ox O2 Delivery O2 Flow Rate FiO2 02/22/22 08:41 Nasal Cannula 5.00 02/21/22 20:09 88 02/21/22 15:48 36.4 65 16 109/67 (81) Capillary Refill : Less Than 3 Seconds General Appearance: Chronically ill, Thin, Other (Comatose) Results/Procedures Lab Patient resulted labs reviewed. Assessment/Plan Assessment and Plan Assess & Plan/Chief Complaint Assessment: End-of-life status Severe hypoglycemia indicative of end-of-life status Hyperkalemia Debility Sacral decubitus ulcer Diarrhea C. difficile positive Dementia Plan: Comfort care BJORN FLANAGAN DO Feb 22, 2022 06:08
--- NOTE | 2022-02-22 14:23 | Discharge Summary ---
Discharge Summary Hospital Course Was the Problem List Reviewed?: Yes Problems/Dx: (1) C. difficile colitis Hospital Course Date of Admission: Feb 18, 2022 at 19:45 Admission Diagnosis : Family Physician/Provider: Estrada Cao MD Date of Discharge: 02/22/22 Discharge Diagnosis: [ ] Hospital Course: short course after she was admitted for diarrhea and dehydration and hyperkalemia from [facility]. Pt was found to have c diff colitis. Vanc initiated but she began to decline quickly and family told me hospice was recommended. Comfort care initiated. Pt . Labs and Pending Lab Test: Laboratory Tests 02/21/22 15:53: Glucometer 80 Microbiology 02/18/22 C. difficile [facility] Antigen & Toxins - Final, Complete Home Meds Active Reported Oxycodone-Acetaminophen 5-325 (Oxycodone HCl/Acetaminophen) 5 Mg-325 Mg Tablet 1 Each PO Q4H PRN ALPRAZolam 0.25 Mg Tablet 0.25 Mg PO Q8H PRN Insulin Aspart Flexpen (Insulin Aspart) 100 Unit/Ml (3 Ml) Insuln.pen Units SQ ACHS 150-199=2 UNITS 200-249=4 UNITS 250-299=6 UNITS 300-349=8 UNITS 350-399=10 UNITS 400-500=12 UNITS CALL PHYSICIAN IF OVER Lantus Solostar (Insulin Glargine,Hum.rec.anlog) 100 Unit/Ml (3 Ml) Insuln.pen 12 Units SQ HS Carvedilol 3.125 Mg Tablet 3.125 Mg PO BID Rosuvastatin Calcium 20 Mg Tablet 20 Mg PO DAILY Mirtazapine 15 Mg Tablet 15 Mg PO HS Lisinopril 10 Mg Tablet 10 Mg PO DAILY Lansoprazole 30 Mg Capsule.dr 30 Mg PO DAILY Famotidine 20 Mg Tablet 20 Mg PO DAILY Citalopram HBr (Citalopram Hydrobromide) 20 Mg Tablet 20 Mg PO DAILY Aspirin 81 Mg Tab.chew 81 Mg PO DAILY Assessment/Pt Instructions Discharge Planning: <30 minutes discharge planning Discharge Instructions Discharge Diet: No Restrictions Discharge Physical Examination Vital Signs Vital Signs Date Time Temp Pulse Resp B/P (MAP) Pulse Ox O2 Delivery O2 Flow Rate FiO2 02/22/22 08:41 Nasal Cannula 5.00 02/21/22 20:09 88 02/21/22 15:48 36.4 65 16 109/67 (81) Allergies: Coded Allergies: No Known Drug Allergies (Unverified , 02/18/22) Discharge Summary Date of Admission Feb 18, 2022 at 19:45 Date of Discharge Admission Diagnosis Assessment: Hyperkalemia Debility Sacral decubitus ulcer Diarrhea C. difficile positive Plan: Kayexalate Gentle IV fluids Vancomycin p.o. Comfort Measures/ End of Life Care: Comfort Measures Discharge Diagnosis Assessment: End-of-life status Severe hypoglycemia indicative of end-of-life status Hyperkalemia Debility Sacral decubitus ulcer Diarrhea C. difficile positive Dementia Plan: Comfort care BJORN FLANAGAN DO Feb 22, 2022 14:23
[2022-02-24] MEDS ORDERED: SCOPOLAMINE PATCH REMOVAL TP SCH (14:59)
== END 2022-02-22 16:05 | disposition expired | DRG 371 ==
LOC: ER FS 16:06 → CSD 19:45 → OBSVTOIN 19:45 → 4TH 02-20 15:40
PROVIDERS: ADMIT Family Medicine; ATTEND Family Medicine
PROC: 8E0ZXY6 Isolation (ICD-10-PCS; principal; 2022-02-18)
DX: A04.72 Enterocolitis due to Clostridium difficile, not specified as recurrent (principal); L89.153 Pressure ulcer of sacral region, stage 3; E46 Unspecified protein-calorie malnutrition; R64 Cachexia; E86.0 Dehydration; E87.5 Hyperkalemia; I35.0 Nonrheumatic aortic (valve) stenosis; I48.91 Unspecified atrial fibrillation; F03.90 Unspecified dementia, unspecified severity, without behavioral disturbance, psychotic disturbance, mood disturbance, and anxiety; I12.9 Hypertensive chronic kidney disease with stage 1 through stage 4 chronic kidney disease, or unspecified chronic kidney disease; N18.30 Chronic kidney disease, stage 3 unspecified; Z66 Do not resuscitate; Z51.5 Encounter for palliative care; Z20.822 Contact with and (suspected) exposure to COVID-19; E16.2 Hypoglycemia, unspecified; E78.00 Pure hypercholesterolemia, unspecified; H54.7 Unspecified visual loss; H91.90 Unspecified hearing loss, unspecified ear; Z79.82 Long term (current) use of aspirin; Z79.4 Long term (current) use of insulin; Z68.20 Body mass index [BMI] 20.0-20.9, adult
CPT/HCPCS: 36415; 71045; 80048; 80053; 82947; 83735; 84134; 85025; 87324; 87449; 87636; 93005; 94760